=== PATIENT | male | born 1955 | race Caucasian/White ===

== ENCOUNTER 2018-10-28 14:30 | Inpatient (IN) | payer SELFPAY ==
--- NOTE | 2018-10-28 15:02 | Emergency Department Report ---
ED Neuro Deficit HPI - General Chief Complaint: Neuro Symptoms/Deficit Stated Complaint: HIGH BP/NUMB Time Seen by Provider: 10/28/18 14:54 Source: patient Mode of arrival: Ambulatory Limitations: Language Barrier - History of Present Illness Initial Comments: Patient is 63 years old male, , translation through family member. Patient brought to the emergency room accompanied by his friends. They stated that patient is having difficulty talking and he has right facial droop since approximately 3 days ago. Patient when asked about his medical history patient denied hypertension and diabetes and stroke. However patient blood pres sure in the emergency room was 208/28 and his blood sugar is more than 200. Patient denied any headache, chest pain or shortness of breath. -: days(s) Location: speech, right face, dysarthria Presenting Symptoms: Present: Facial Droop/Numbness, Unable to Speak Clearly History of same: No Place: home Severity: moderate Improves With: none Worsens With: none Context: sudden onset Associated Symptoms: denies other symptoms - Related Data Allergies/Adverse Reactions: Allergies Allergy/AdvReac Type Severity Reaction Status Date / Time No Known Allergies Allergy Unverified 10/28/18 14:44 ED Review of Systems ROS: Stated complaint: HIGH BP/NUMB Other details as noted in HPI Comment: All other systems reviewed and negative Constitutional: denies: chills, fever Respiratory: denies: cough, orthopnea, shortness of breath, SOB with exertion, SOB at rest, wheezing Cardiovascular: denies: chest pain, palpitations, dyspnea on exertion Gastrointestinal: denies: abdominal pain, nausea, vomiting, diarrhea, constipation, hematemesis, melena, hematochezia Musculoskeletal: denies: back pain Neurological: numbness. denies: headache, weakness, paresthesias, confusion, abnormal gait ED Past Medical Hx - Past Medical History Previous Medical History?: No - Surgical History Past Surgical History?: No - Social History Smoking Status: Never Smoker Substance Use Type: None ED Neuro Physical Exam - General Limitations: Language Barrier General appearance: alert, in no apparent distress Suspected Stroke: Yes - Head Head exam: Present: atraumatic, normocephalic, normal inspection - Eye Eye exam: Present: normal appearance, PERRL - ENT ENT exam: Present: normal exam, normal orophraynx, mucous membranes moist - Neck Neck exam: Present: normal inspection, full ROM. Absent: tenderness, meningismus, lymphadenopathy, thyromegaly - Respiratory Respiratory exam: Present: normal lung sounds bilaterally. Absent: respiratory distress, wheezes, rales, rhonchi, stridor, chest wall tenderness, accessory muscle use, decreased breath sounds, prolonged expiratory - Cardiovascular Cardiovascular Exam: Present: regular rate, normal rhythm, normal heart sounds - GI/Abdominal GI/Abdominal exam: Present: soft, normal bowel sounds. Absent: distended, tenderness, guarding, rebound, rigid, organomegaly, mass, bruit, pulsatile mass, hernia - Extremities Exam Extremities exam: Present: normal inspection, full ROM, normal capillary refill. Absent: tenderness, pedal edema, calf tenderness - Back Exam Back exam: Present: normal inspection, full ROM. Absent: tenderness, CVA tenderness (R), CVA tenderness (L), muscle spasm - Neurological Exam Neurological exam: Present: alert, oriented X3 - NIHSS Assessment Interval: 24 hours post onset of symptoms +-20 minutes 1a. Level of Consciousness: alert/keenly responsive 1b. LOC Questions: answers both correctly 1c. LOC Commands: performs tasks correctly 2. Best Gaze: normal 3. Visual: no visual loss 4. Facial Palsy: partial paralysis 5b. Motor Arm Right: no drift 5a. Motor Arm Left: no drift 6a. Motor Leg Left: no drift 6b. Motor Leg Right: no drift 7. Limb Ataxia: absent 8. Sensory: mild/moderate sensory loss 9. Best Language: mild/moderate aphasia 10. Dysarthria: mild/moderate dysarthria 11. Extinction/Inattention: no abnormality Total Score: 5 Stroke Severity: Moderate Stroke - Psychiatric Psychiatric exam: Present: normal affect, normal mood - Skin Skin exam: Present: warm, intact, normal color ED Course Vital Signs 10/28/18 10/28/18 10/28/18 14:41 14:55 15:00 Temperature 98.6 F Pulse Rate 85 80 84 Respiratory 18 18 17 Rate Blood Pressure 208/128 229/109 Blood Pressure [Left] O2 Sat by Pulse 100 96 Oximetry 10/28/18 10/28/18 10/28/18 15:15 15:16 15:30 Temperature Pulse Rate 83 75 Respiratory 20 15 20 Rate Blood Pressure 229/109 229/109 Blood Pressure [Left] O2 Sat by Pulse 96 Oximetry 10/28/18 10/28/18 10/28/18 15:46 16:00 16:16 Temperature Pulse Rate 78 78 73 Respiratory 22 14 14 Rate Blood Pressure 229/109 207/103 207/103 Blood Pressure [Left] O2 Sat by Pulse 96 95 98 Oximetry 10/28/18 10/28/18 10/28/18 16:30 16:46 17:00 Temperature Pulse Rate 77 77 74 Respiratory 19 13 13 Rate Blood Pressure 198/93 198/93 196/95 Blood Pressure [Left] O2 Sat by Pulse 93 98 94 Oximetry 10/28/18 10/28/18 10/28/18 17:16 17:30 17:46 Temperature Pulse Rate 73 70 70 Respiratory 11 L 14 19 Rate Blood Pressure 196/95 196/95 196/95 Blood Pressure [Left] O2 Sat by Pulse 99 97 95 Oximetry 10/28/18 10/28/18 18:19 19:22 Temperature 98.2 F Pulse Rate 68 74 Respiratory 14 Rate Blood Pressure 196/106 Blood Pressure 178/88 [Left] O2 Sat by Pulse 98 Oximetry - Lab Data Result diagrams: 10/28/18 14:52 10/28/18 14:58 Lab Results 10/28/18 10/28/18 10/28/18 Range/Units 14:36 14:52 14:52 WBC 10.0 (4.5-11.0) K/mm3 RBC 5.27 H (3.65-5.03) M/mm3 Hgb 15.7 H (11.8-15.2) gm/dl Hct 44.9 (35.5-45.6) % MCV 85 (84-94) fl MCH 30 (28-32) pg MCHC 35 H (32-34) % RDW 13.3 (13.2-15.2) % Plt Count 140 (140-440) K/mm3 Lymph % (Auto) 12.4 L (13.4-35.0) % Grayson % (Auto) 5.1 (0.0-7.3) % Eos % (Auto) 0.3 (0.0-4.3) % Baso % (Auto) 0.3 (0.0-1.8) % Lymph # 1.2 (1.2-5.4) K/mm3 Grayson # 0.5 (0.0-0.8) K/mm3 Eos # 0.0 (0.0-0.4) K/mm3 Baso # 0.0 (0.0-0.1) K/mm3 Seg Neutrophils % 81.9 H (40.0-70.0) % Seg Neutrophils # 8.2 H (1.8-7.7) K/mm3 PT 13.2 (12.2-14.9) Sec. INR 0.96 (0.87-1.13) APTT 23.5 L (24.2-36.6) Sec. Thrombin Time (15.1-19.6) Sec. Sodium (137-145) mmol/L Potassium (3.6-5.0) mmol/L Chloride (98-107) mmol/L Carbon Dioxide (22-30) mmol/L Anion Gap mmol/L BUN (9-20) mg/dL Creatinine (0.8-1.5) mg/dL Estimated GFR ml/min BUN/Creatinine Ratio % Glucose (75-100) mg/dL POC Glucose 232 H (70-105) Calcium (8.4-10.2) mg/dL Total Bilirubin (0.1-1.2) mg/dL Direct Bilirubin (0-0.2) mg/dL AST (5-40) units/L ALT (7-56) units/L Alkaline Phosphatase (35-129) units/L Troponin T (0.00-0.029) ng/mL Total Protein (6.3-8.2) g/dL Albumin (3.9-5) g/dL Albumin/Globulin Ratio % 10/28/18 10/28/18 10/28/18 Range/Units 14:58 14:58 14:59 WBC (4.5-11.0) K/mm3 RBC (3.65-5.03) M/mm3 Hgb (11.8-15.2) gm/dl Hct (35.5-45.6) % MCV (84-94) fl MCH (28-32) pg MCHC (32-34) % RDW (13.2-15.2) % Plt Count (140-440) K/mm3 Lymph % (Auto) (13.4-35.0) % Grayson % (Auto) (0.0-7.3) % Eos % (Auto) (0.0-4.3) % Baso % (Auto) (0.0-1.8) % Lymph # (1.2-5.4) K/mm3 Grayson # (0.0-0.8) K/mm3 Eos # (0.0-0.4) K/mm3 Baso # (0.0-0.1) K/mm3 Seg Neutrophils % (40.0-70.0) % Seg Neutrophils # (1.8-7.7) K/mm3 PT (12.2-14.9) Sec. INR (0.87-1.13) APTT (24.2-36.6) Sec. Thrombin Time 16.1 (15.1-19.6) Sec. Sodium 137 (137-145) mmol/L Potassium 3.9 (3.6-5.0) mmol/L Chloride 102.6 (98-107) mmol/L Carbon Dioxide 21 L (22-30) mmol/L Anion Gap 17 mmol/L BUN 15 (9-20) mg/dL Creatinine 0.8 (0.8-1.5) mg/dL Estimated GFR > 60 ml/min BUN/Creatinine Ratio 19 % Glucose 242 H (75-100) mg/dL POC Glucose (70-105) Calcium 9.1 (8.4-10.2) mg/dL Total Bilirubin 0.40 (0.1-1.2) mg/dL Direct Bilirubin < 0.2 (0-0.2) mg/dL AST 20 (5-40) units/L ALT 21 (7-56) units/L Alkaline Phosphatase 87 (35-129) units/L Troponin T < 0.010 (0.00-0.029) ng/mL Total Protein 8.2 (6.3-8.2) g/dL Albumin 4.8 (3.9-5) g/dL Albumin/Globulin Ratio 1.4 % - EKG Data -: EKG Interpreted by Sd EKG shows normal: sinus rhythm Rate: normal Interpretation: no acute changes - Radiology Data Radiology results: report reviewed CT brain is unremarkable. - Medical Decision Making Patient is 63 years old male, , translation through family member. Patient brought to the emergency room accompanied by his friends. They stated that patient is having difficulty talking and he has right facial droop since approximately 3 days ago. Patient when asked about his medical history patient denied hypertension and diabetes and stroke. However patient blood pressure in the emergency room was 208/28 and his blood sugar is more than 200. Patient denied any headache, chest pain or shortness of breath. Patient's symptoms started more than 3 days ago. Patient is not a TPA candidate or thrombectomy candidate. I discussed the patient with Dr. Henry, he agreed to admit the patient to medical service. - Thrombolytic Inclusion/Exclusion Thrombolytic Exclusion Criteria: Symptom Onset > 3 Hours Critical Care Time: Yes Critical care time in (mins) excluding proc time.: 30 Critical care attestation.: If time is entered above; I have spent that time in minutes in the direct care of this critically ill patient, excluding procedure time. ED Disposition Clinical Impression: CVA (cerebral vascular accident) Qualifiers: Precerebral and cerebral artery: unspecified cerebral artery Disposition: DC-[id number] OP ADMIT IP TO THIS HOSP Is pt being admited?: Yes Condition: Stable
[2018-10-28 15:13] LABS: Basophils % (Auto) 0.3 % (0.0-1.8); Eosinophils % (Auto) 0.3 % (0.0-4.3); Hematocrit 44.9 % (35.5-45.6); Hemoglobin 15.7 gm/dl (11.8-15.2); Lymphocytes # (Auto) 1.2 K/mm3 (1.2-5.4); Lymphocytes % (Auto) 12.4 % (13.4-35.0); Mean Corpuscular HGB Conc 35 % (32-34); Mean Corpuscular Volume 85 fl (84-94); Monocytes # (Auto) 0.5 K/mm3 (0.0-0.8); Monocytes % (Auto) 5.1 % (0.0-7.3); Red Blood Count 5.27 M/mm3 (3.65-5.03); Red Cell Distribution Width 13.3 % (13.2-15.2)
[2018-10-28 15:17] LABS: Platelet Count 140 K/mm3 (140-440)
[2018-10-28 15:22] LABS: INR 0.96 (0.87-1.13); Partial Thromboplastin Time 23.5 Sec. (24.2-36.6)
[2018-10-28 15:31] LABS: BUN/Creatinine Ratio 19; Blood Urea Nitrogen 15 mg/dL (9-20); Calcium 9.1 mg/dL (8.4-10.2); Hemolysis Index 9
--- NOTE | 2018-10-28 15:32 | Cat Scan Report ---
FINAL REPORT EXAM: CT HEAD/BRAIN WO CON HISTORY: neuro deficits <6hrs or sx present upon awakening TECHNIQUE: CT of the Head without IV contrast. PRIORS: None currently available. FINDINGS: There is no evidence for acute ischemia. There is no hemorrhage. There is no midline shift. There is no hydrocephalus. There is no mass. Age appropriate hatfield-white matter attenuation is noted. There is no calvarial fracture. The temporal bones demonstrate aerated mastoid air cells. The middle ears appear unremarkable. Paranasal sinuses are unremarkable. Globes are intact. IMPRESSION: No acute intracranial findings.
[2018-10-28 15:33] LABS: Alanine Aminotransferase 21 units/L (7-56); Albumin 4.8 g/dL (3.9-5)
[2018-10-28 15:41] LABS: Bilirubin,Direct < 0.2 mg/dL (0-0.2)
[2018-10-28] MEDS ORDERED: DULCOLAX PR PRN (16:43)
[2018-10-28] MEDS ORDERED: PROVENTIL IH PRN (16:43)
[2018-10-28] MEDS ORDERED: PHENERGAN PR PRN (16:43)
[2018-10-28] MEDS ORDERED: REGLAN PO PRN (16:43)
[2018-10-28] MEDS ORDERED: ZOFRAN IV PRN (16:43)
[2018-10-28] MEDS ORDERED: MILK OF MAGNESIA PO PRN (16:43)
--- NOTE | 2018-10-28 16:43 | History and Physical Report ---
History of Present Illness Chief complaint: He cant talk right History of present illness: 63 YO Male with NO PMH presents to ED for evaluation. Pt is unable to speak Polish, and had difficulty speaking. Pt family who is at bedside during exam and interview serves as vehicle service agent. As per family, the patient was in his usual state of health 3 days ago. Pt experienced sudden onset of right sided facial drooping, difficulty speaking 3 days ago with persistent symptoms over the same time frame. Pt family transported patient to [facility] for further care and evaluation. Pt seen and evaluated in ED and found to have CVA with Dysarthria. Pt outside therapeutic window for TPA. Pt admitted to telemetry and initiated on CVA protocol. NO reports of fever, chills, CP, Palpitations, Trauma, Falls, productive cough, seizure, vertigo, skin rash, or recent ill contacts. Past History Past Medical History: No medical history, other (reviewed) Past Surgical History: No surgical history, Other (reviewed) Social history: single. denies: smoking, alcohol abuse, prescription drug abuse Family history: no significant family history (reviewed) Medications and Allergies Allergies Allergy/AdvReac Type Severity Reaction Status Date / Time No Known Allergies Allergy Unverified 10/28/18 14:44 Review of Systems ROS unobtainable: due to mental status Exam - Constitutional Vitals: Temp Pulse Resp BP Pulse Ox 98.6 F 78 14 207/103 95 10/28/18 14:41 10/28/18 16:00 10/28/18 16:00 10/28/18 16:00 10/28/18 16:00 General appearance: Present: mild distress - EENT Eyes: Present: PERRL ENT: hearing intact, clear oral mucosa - Neck Neck: Present: supple, normal ROM - Respiratory Respiratory effort: normal Respiratory: bilateral: CTA - Cardiovascular Heart Sounds: Present: S1 & S2. Absent: rub, click - Extremities Extremities: pulses symmetrical, No edema Peripheral Pulses: within normal limits - Abdominal General gastrointestinal: Present: soft, non-tender, non-distended, normal bowel sounds Male genitourinary: Present: normal - Integumentary Integumentary: Present: clear, warm, dry - Musculoskeletal Musculoskeletal: generalized weakness - Psychiatric Psychiatric: appropriate mood/affect, no intact judgment & insight, no memory intact - Neurologic Neurologic: no CNII-XII intact, focal deficits, moves all extremities, no gait normal Results - Labs CBC & Chem 7: 10/28/18 14:52 10/28/18 14:58 Labs: Abnormal lab results 10/28/18 10/28/18 10/28/18 Range/Units 14:36 14:52 14:52 RBC 5.27 H (3.65-5.03) M/mm3 Hgb 15.7 H (11.8-15.2) gm/dl MCHC 35 H (32-34) % Lymph % (Auto) 12.4 L (13.4-35.0) % Seg Neutrophils % 81.9 H (40.0-70.0) % Seg Neutrophils # 8.2 H (1.8-7.7) K/mm3 APTT 23.5 L (24.2-36.6) Sec. Carbon Dioxide (22-30) mmol/L Glucose (75-100) mg/dL POC Glucose 232 H (70-105) 10/28/18 Range/Units 14:58 RBC (3.65-5.03) M/mm3 Hgb (11.8-15.2) gm/dl MCHC (32-34) % Lymph % (Auto) (13.4-35.0) % Seg Neutrophils % (40.0-70.0) % Seg Neutrophils # (1.8-7.7) K/mm3 APTT (24.2-36.6) Sec. Carbon Dioxide 21 L (22-30) mmol/L Glucose 242 H (75-100) mg/dL POC Glucose (70-105) Assessment and Plan - Patient Problems (1) CVA (cerebral vascular accident) Current Visit: Yes Status: Acute Qualifiers: Precerebral and cerebral artery: unspecified cerebral artery Plan to address problem: Admit to telemetry: CVA Protocol: CT Head, MRI, MRA, Echo, Carotid doppler, Antiplatelet therapy, statin therapy, PT/OT/ Speech Therapy, Neuro checks,Neurology consulted. (2) Acidosis Current Visit: Yes Status: Acute Plan to address problem: IVF resuscitation therapy, repeat bmp (3) Malignant hypertension Current Visit: Yes Status: Acute Plan to address problem: monitor bp q shift, IV hydralazine prn. (4) DVT prophylaxis Current Visit: Yes Status: Acute Plan to address problem: SCD to BLE while in bed.
[2018-10-28] MEDS ORDERED: APRESOLINE IV PRN (16:48)
[2018-10-28] MEDS ORDERED: APRESOLINE ONE (18:17)
[2018-10-29 15:23] LABS: Chol/HDL Ratio 3.13 %
--- NOTE | 2018-10-29 15:34 | Magnetic Resonance Report ---
MRI BRAIN WITHOUT CONTRAST INDICATION: Stroke. COMPARISON: Head CT from yesterday. FINDINGS: Noncontrast multiplanar and multisequence MRI of the brain demonstrates approximately 5 x 2.7 cm left tse radiata acute infarct with few additional small foci of restricted diffusion more inferiorly as on diffusion series 4, images 16-23 as a linear measuring 0.9 cm in the left basal ganglia as also few others possibly cortical/subcortical as on image 19. Slight adjacent effacement upon the left lateral ventricle may be present, noted slightly smaller than the right versus anatomic variation. Mild periventricular FLAIR and T2 weighted hyperintensities with few other small lacunar infarcts as 3-4 mm in the right basal ganglia, axial image 14, series 6 as also another 4 mm in the right tse radiata, axial image 17 noted. No acute hemorrhage or midline shift. No abnormal extra-axial masses or fluid collections. Grossly normal major intracranial vascular flow voids. Symmetric, normal ventricles. Normal posterior fossa with preserved basilar cisterns and symmetric seventh and eighth nerve complexes. Normal eye globes. Mild nasal septal deviation noted, axial image 6. Clear imaged paranasal sinuses and mastoid air cells. Normal midline structures without evidence of Chiari malformation. CONCLUSION: 1. Acute left cerebral hemisphere infarction involving the tse radiata/posterior frontal lobe with some ganglionic involvement as well, as described. 2. Few other findings, as above. Thank you for the opportunity to participate in this patient's care.
--- NOTE | 2018-10-29 15:40 | Magnetic Resonance Report ---
MRA HEAD WITHOUT CONTRAST INDICATION: Stroke. COMPARISON: None similar. FINDINGS: MRA of the head performed without intravenous contrast and demonstrates patent bilateral ICAs and right MCA and its branches. Left MCA appears patent centrally, though diminished in caliber along much of its remainder length up to the sylvian fissure where further caliber narrowing/irregularity/clot suspected. Asymmetrically diminished M2 and M3 branches on the left also noted. Patent bilateral ACAs, though A1 segment on the right may be hypoplastic. PCOMs not visualized. power system dispatcher appear patent. Patent vertebrobasilar tree as well with left vertebral artery noted dominant. Please note that detection of aneurysms less than 5 mm is limited on this exam. CONCLUSION: Left MCA thrombosis suspected, as described above. Thank you for the opportunity to participate in this patient's care.
--- NOTE | 2018-10-29 18:31 | Consultation ---
History of Present Illness Consult date: 10/29/18 Chief complaint: right hemiparesis and aphasia History of present illness: This is a previously healthy 63 YO M who presented to the ED with at least 3 days of trouble with speech and right sided weakness. Pt and are maltese only but family is at bedside interpreting. Pt was not taking any meds previously including aspirin. Family says he is not speaking or moving the right side. Past History Past Medical History: No medical history, other (reviewed) Past Surgical History: No surgical history, Other (reviewed) Social history: single. denies: smoking, alcohol abuse, prescription drug abuse Family history: no significant family history (reviewed) Medications and Allergies Allergies Allergy/AdvReac Type Severity Reaction Status Date / Time No Known Allergies Allergy Unverified 10/28/18 14:44 Home Medications Medication Instructions Recorded Confirmed Last Taken Type No Known Home Medications [No 10/28/18 10/28/18 Unknown History Reported Home Medications] Active Meds: Active Medications Acetaminophen (Tylenol) 650 mg PO Q4H PRN PRN Reason: Pain, Mild (1-3) Albuterol (Proventil) 2.5 mg IH Q3HRT PRN PRN Reason: Shortness Of Breath Atorvastatin Calcium (Lipitor) 40 mg PO QHS AMY Last Admin: 10/28/18 21:20 Dose: 40 mg Documented by: Bisacodyl (Dulcolax) 10 mg [place] QDAY PRN PRN Reason: Constipation Hydralazine HCl (Apresoline) 10 mg IV Q4HR PRN PRN Reason: Hypertension Last Admin: 10/28/18 18:19 Dose: 10 mg Documented by: Magnesium Hydroxide (Milk Of Magnesia) 30 ml PO Q4H PRN PRN Reason: Constipation Metoclopramide HCl (Reglan) 10 mg PO Q6H PRN PRN Reason: Nausea And Vomiting Ondansetron HCl (Zofran) 4 mg IV Q8H PRN PRN Reason: Nausea And Vomiting Promethazine HCl (Phenergan) 25 mg [place] Q6H PRN PRN Reason: Nausea And Vomiting Sodium Chloride (Sodium Chloride Flush Syringe 10 Ml) 10 ml IV PRN PRN PRN Reason: LINE FLUSH Review of Systems ROS unobtainable: due to mental status (aphasic) Physical Examination - Vital Signs Vital Signs: Vital Signs Temp Pulse Resp BP Pulse Ox 98.6 F 85 18 208/128 100 10/28/18 14:41 10/28/18 14:41 10/28/18 14:41 10/28/18 14:41 10/28/18 14:41 - EENT EENT: Present: PERRL, mucous membranes moist - Respiratory Respiratory: Present: lungs clear, no respiratory distress - Cardiovascular Cardiovascular: Present: normal S1 - Gastrointestinal Gastrointestinal: Present: normoactive bowel sounds - Neurologic Cranial nerve examination: PERRL, EOMI, tongue midline, facial droop Motor examination - right side: 1/5: biceps, triceps, wrist flexion, wrist extension, blueprint trimmer, hip flexors, knee extensors, dorsiflexion, toe extension (EHL), plantarflexion Motor examination - left side: 5/5: biceps, triceps, wrist flexion, wrist extension, blueprint trimmer, hip flexors, knee extensors, dorsiflexion, toe extension (EHL), plantarflexion Detailed sensory examination: light touch Reflex and gait examination: Babinski's sign Reflexes: 1+: ankle, bicep, knee, tricep - Assessment Assessment Interval: 24 hours post onset of symptoms +-20 minutes - Level of Consciousness 1a. Level of Consciousness: alert/keenly responsive - LOC Questions 1b. LOC Questions: answers no questions correctly - LOC Command 1c. LOC Commands: performs no tasks correctly - Best Gaze 2. Best Gaze: normal - Visual 3. Visual: no visual loss - Facial Palsy 4. Facial Palsy: partial paralysis - Motor Arm 5b. Motor Arm Right: no movement 5a. Motor Arm Left: no movement - Motor Leg 6b. Motor Leg Right: no drift 6a. Motor Leg Left: no drift - Limb Ataxia 7. Limb Ataxia: present 2 limbs - Sensory 8. Sensory: normal - Best Language 9. Best Language: mute/global aphasia - Dysarthria 10. Dysarthria: normal - Extinction and Inattention 11. Extinction/Inattention: no abnormality - Scoring Total Score: 19 Stroke Severity: Moderate to Severe Stroke Results - Laboratory Findings CBC and BMP: 10/28/18 14:52 10/28/18 14:58 Abnormal Lab Findings: Abnormal Labs 10/28/18 10/28/18 10/28/18 14:36 14:52 14:52 RBC 5.27 H Hgb 15.7 H MCHC 35 H Lymph % (Auto) 12.4 L Seg Neutrophils % 81.9 H Seg Neutrophils # 8.2 H APTT 23.5 L Carbon Dioxide Glucose POC Glucose 232 H 10/28/18 14:58 RBC Hgb MCHC Lymph % (Auto) Seg Neutrophils % Seg Neutrophils # APTT Carbon Dioxide 21 L Glucose 242 H POC Glucose Assessment and Plan This is a 63 YO M with LMCA stroke and LMCA thrombus. PT presented out of the window for Alteplase or thrombectomy. REcommend: Rectal aspirin and statin when pt can take PO MRI Brain, MRA, echo all reviewed. PT/OT/ST/Rehab VTE prophylaxis BP management as per protocol COntinue care for all medical issues as you are doing. Pt's family member is asking for a work excuse, will need to be addressed by the primary team. All pt family questions answered Call with questions.
[2018-10-29] MEDS: ASPIRIN PR SCH (18:54)
--- NOTE | 2018-10-29 20:11 | Progress Note ---
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 and dysarthria; --Acute left MCA CVA; not a candidate for TPA or thrombectomy Aspirin and statin, physical therapy occupational therapy and speech therapy Rehabilitation, Neurology following --Malignant hypertension; present on admission Continue current antihypertensives and when necessary medications --Dyslipidemia; continue statin --Dysarthria; speech therapy and supportive care --DVT prophylaxis; Lovenox Physical therapy, occupational therapy, speech therapy -- DC planning.per Case management; possible acute rehabilitation versus SNF placement When medically stable Plan of care discussed with the patient's family through a bilingual family member Answered all their questions Disposition; possible acute rehabilitation/SNF when medically stable History Interval history: Patient seen and medical records reviewed Multiple family members at the bedside Patient is aphasic, right-sided weakness In mild distress Vital signs reviewed Hospitalist Physical - Constitutional Vitals: Temp Pulse Resp BP Pulse Ox 99.6 F 78 14 171/94 96 10/29/18 17:29 10/29/18 17:29 10/29/18 17:29 10/29/18 17:29 10/29/18 19:42 General appearance: Present: mild distress, well-nourished - EENT Eyes: Present: PERRL, EOM intact - Neck Neck: Present: supple, normal ROM - Respiratory Respiratory effort: normal Respiratory: bilateral: diminished, rhonchi, negative: rales, wheezing - Cardiovascular Rhythm: regular Heart Sounds: Present: S1 & S2 - Extremities Extremities: no ischemia, No edema - Abdominal General gastrointestinal: soft, non-tender, non-distended, normal bowel sounds - Integumentary Integumentary: Present: clear, warm - Psychiatric Psychiatric: other (noncommunicative) - Neurologic Neurologic: other (dysarthria/right-sided weakness/facial droop) Results - Labs CBC & Chem 7: 10/28/18 14:52 10/28/18 14:58 Labs: Laboratory Last Values WBC 10.0 K/mm3 (4.5-11.0) 10/28/18 14:52 RBC 5.27 M/mm3 (3.65-5.03) H 10/28/18 14:52 Hgb 15.7 gm/dl (11.8-15.2) H 10/28/18 14:52 Hct 44.9 % (35.5-45.6) 10/28/18 14:52 MCV 85 fl (84-94) 10/28/18 14:52 MCH 30 pg (28-32) 10/28/18 14:52 MCHC 35 % (32-34) H 10/28/18 14:52 RDW 13.3 % (13.2-15.2) 10/28/18 14:52 Plt Count 140 K/mm3 (140-440) 10/28/18 14:52 Lymph % (Auto) 12.4 % (13.4-35.0) L 10/28/18 14:52 [place] % (Auto) 5.1 % (0.0-7.3) 10/28/18 14:52 Eos % (Auto) 0.3 % (0.0-4.3) 10/28/18 14:52 Baso % (Auto) 0.3 % (0.0-1.8) 10/28/18 14:52 Lymph # 1.2 K/mm3 (1.2-5.4) 10/28/18 14:52 [place] # 0.5 K/mm3 (0.0-0.8) 10/28/18 14:52 Eos # 0.0 K/mm3 (0.0-0.4) 10/28/18 14:52 Baso # 0.0 K/mm3 (0.0-0.1) 10/28/18 14:52 Seg Neutrophils % 81.9 % (40.0-70.0) H 10/28/18 14:52 Seg Neutrophils # 8.2 K/mm3 (1.8-7.7) H 10/28/18 14:52 PT 13.2 Sec. (12.2-14.9) 10/28/18 14:52 INR 0.96 (0.87-1.13) 10/28/18 14:52 APTT 23.5 Sec. (24.2-36.6) L 10/28/18 14:52 Thrombin Time 16.1 Sec. (15.1-19.6) 10/28/18 14:58 Sodium 137 mmol/L (137-145) 10/28/18 14:58 Potassium 3.9 mmol/L (3.6-5.0) 10/28/18 14:58 Chloride 102.6 mmol/L (98-107) 10/28/18 14:58 Carbon Dioxide 21 mmol/L (22-30) L 10/28/18 14:58 Anion Gap 17 mmol/L 10/28/18 14:58 BUN 15 mg/dL (9-20) 10/28/18 14:58 Creatinine 0.8 mg/dL (0.8-1.5) 10/28/18 14:58 Estimated GFR > 60 ml/min 10/28/18 14:58 BUN/Creatinine Ratio 19 % 10/28/18 14:58 Glucose 242 mg/dL (75-100) H 10/28/18 14:58 POC Glucose 189 (70-105) H 10/29/18 18:45 Calcium 9.1 mg/dL (8.4-10.2) 10/28/18 14:58 Total Bilirubin 0.40 mg/dL (0.1-1.2) 10/28/18 14:59 Direct Bilirubin < 0.2 mg/dL (0-0.2) 10/28/18 14:59 AST 20 units/L (5-40) 10/28/18 14:59 ALT 21 units/L (7-56) 10/28/18 14:59 Alkaline Phosphatase 87 units/L (35-129) 10/28/18 14:59 Troponin T < 0.010 ng/mL (0.00-0.029) 10/28/18 14:58 Total Protein 8.2 g/dL (6.3-8.2) 10/28/18 14:59 Albumin 4.8 g/dL (3.9-5) 10/28/18 14:59 Albumin/Globulin Ratio 1.4 % 10/28/18 14:59 Triglycerides 111 mg/dL (2-149) 10/29/18 13:25 Cholesterol 160 mg/dL (50-199) 10/29/18 13:25 LDL Cholesterol Direct 106 mg/dL (50-130) 10/29/18 13:25 HDL Cholesterol 51 mg/dL (40-59) 10/29/18 13:25 Cholesterol/HDL Ratio 3.13 % 10/29/18 13:25
[2018-10-29] MEDS: LOVENOX SUB-Q SCH (21:38)
[2018-10-29] MEDS: SODIUM CHLORIDE FLUSH SYRINGE 10 ML IV PRN (21:38)
[2018-10-30] MEDS: HumaLOG SUB-Q SCH ×4 (06:00→17:16)
[2018-10-30 07:08] LABS: Basophils % (Auto) 0.3 % (0.0-1.8); Eosinophils # (Auto) 0.1 K/mm3 (0.0-0.4); Eosinophils % (Auto) 0.6 % (0.0-4.3); Hematocrit 45.1 % (35.5-45.6); Hemoglobin 15.3 gm/dl (11.8-15.2); Lymphocytes # (Auto) 2.3 K/mm3 (1.2-5.4); Lymphocytes % (Auto) 21.5 % (13.4-35.0); Mean Corpuscular HGB Conc 34 % (32-34); Mean Corpuscular Volume 87 fl (84-94); Monocytes # (Auto) 0.7 K/mm3 (0.0-0.8); Monocytes % (Auto) 6.6 % (0.0-7.3); Red Blood Count 5.17 M/mm3 (3.65-5.03); Red Cell Distribution Width 13.2 % (13.2-15.2)
--- NOTE | 2018-10-30 07:10 | Vascular Lab Report ---
FINAL REPORT EXAM: VL CAROTID DUPLEX BILAT HISTORY: stroke TECHNIQUE: Routine duplex imaging was obtained of the arteries in the neck. Color Doppler images wav eforms velocities recorded. FINDINGS: There is interval thickening and mild plaque formation in both proximal internal carotid arteries. Th e waveforms losses are normal in both common and both internal carotid arteries. There is normal ante grade flow and waveforms in both vertebral arteries and external carotid arteries. The ICA/CCA ratios are unremarkable bilaterally. IMPRESSION: Intimal thickening and mild plaque formation in both proximal ICAs. No evidence of any hemodynamicall y significant stenosis bilaterally. Normal antegrade flow in both vertebral arteries.
[2018-10-30 07:20] LABS: Platelet Count 130 K/mm3 (140-440)
[2018-10-30] MEDS: ASPIRIN PR SCH ×2 (10:22→10:27)
--- NOTE | 2018-10-30 16:36 | Progress Note ---
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 and dysarthria; --Acute left MCA CVA; not a candidate for TPA or thrombectomy Aspirin and statin, physical therapy occupational therapy and speech therapy Rehabilitation, Neurology following --Malignant hypertension; present on admission Continue current antihypertensives and when necessary medications --Dyslipidemia; continue statin --Dysarthria; speech therapy and supportive care --DVT prophylaxis; Lovenox Physical therapy, occupational therapy, speech therapy -- DC planning.per Case management; possible acute rehabilitation versus SNF placement When medically stable Plan of care discussed with the patient's family through a bilingual family member Answered all their questions Disposition; possible acute rehabilitation/SNF when medically stable==>unfunded, d/w case management, awaiting safe discharge History Interval history: Patient was seen and examined. Follow-up on current diagnosis of CVA. Overnight uneventful. Patient aphasic but nods head. Imaging, nursing note, chart, labs and old chart reviewed. Discussed with patient and nephrew Maninder at bedside Hospitalist Physical - Physical exam Narrative exam: Gen: WDWN, NAD, Awake, nonverbal HEENT: NCAT, EOMI, PERRL, OP Clear Neck: supple, no adenopathy, no thyromegaly, no JVD CVS/Heart: RRR, normal S1S2, pulses present bilaterally Chest/Lungs: CTA B, Symmetrical chest expansion, good air entry bilaterally GI/Abdomen: soft, NTND, good bowel sounds, no guarding or rebound /Bladder: no suprapubic tenderness, no CVA or paraspinal tenderness Extermity/Skin: no c/c/e, no obvious rash MSK: FROM x3, right side is flaccid Neuro: CN 2-12 grossly intact except expressive aphasia, right hemiparesis Psych: calm - Constitutional Vitals: Temp Pulse Resp BP Pulse Ox 99.1 F 80 18 130/86 94 10/30/18 11:33 10/30/18 11:33 10/30/18 11:33 10/30/18 11:33 10/30/18 11:33 General appearance: Present: mild distress, well-nourished Results - Labs CBC & Chem 7: 10/30/18 05:49 10/28/18 14:58 Labs: Laboratory Last Values WBC 10.6 K/mm3 (4.5-11.0) 10/30/18 05:49 RBC 5.17 M/mm3 (3.65-5.03) H 10/30/18 05:49 Hgb 15.3 gm/dl (11.8-15.2) H 10/30/18 05:49 Hct 45.1 % (35.5-45.6) 10/30/18 05:49 MCV 87 fl (84-94) 10/30/18 05:49 MCH 30 pg (28-32) 10/30/18 05:49 MCHC 34 % (32-34) 10/30/18 05:49 RDW 13.2 % (13.2-15.2) 10/30/18 05:49 Plt Count 130 K/mm3 (140-440) L 10/30/18 05:49 Lymph % (Auto) 21.5 % (13.4-35.0) 10/30/18 05:49 [place] % (Auto) 6.6 % (0.0-7.3) 10/30/18 05:49 Eos % (Auto) 0.6 % (0.0-4.3) 10/30/18 05:49 Baso % (Auto) 0.3 % (0.0-1.8) 10/30/18 05:49 Lymph # 2.3 K/mm3 (1.2-5.4) 10/30/18 05:49 [place] # 0.7 K/mm3 (0.0-0.8) 10/30/18 05:49 Eos # 0.1 K/mm3 (0.0-0.4) 10/30/18 05:49 Baso # 0.0 K/mm3 (0.0-0.1) 10/30/18 05:49 Seg Neutrophils % 71.0 % (40.0-70.0) H 10/30/18 05:49 Seg Neutrophils # 7.5 K/mm3 (1.8-7.7) 10/30/18 05:49 PT 13.2 Sec. (12.2-14.9) 10/28/18 14:52 INR 0.96 (0.87-1.13) 10/28/18 14:52 APTT 23.5 Sec. (24.2-36.6) L 10/28/18 14:52 Thrombin Time 16.1 Sec. (15.1-19.6) 10/28/18 14:58 Sodium 137 mmol/L (137-145) 10/28/18 14:58 Potassium 3.9 mmol/L (3.6-5.0) 10/28/18 14:58 Chloride 102.6 mmol/L (98-107) 10/28/18 14:58 Carbon Dioxide 21 mmol/L (22-30) L 10/28/18 14:58 Anion Gap 17 mmol/L 10/28/18 14:58 BUN 15 mg/dL (9-20) 10/28/18 14:58 Creatinine 0.8 mg/dL (0.8-1.5) 10/28/18 14:58 Estimated GFR > 60 ml/min 10/28/18 14:58 BUN/Creatinine Ratio 19 % 10/28/18 14:58 Glucose 242 mg/dL (75-100) H 10/28/18 14:58 POC Glucose 147 (70-105) H 10/30/18 11:39 Hemoglobin A1c 9.3 % (4-6) H 10/30/18 05:49 Calcium 9.1 mg/dL (8.4-10.2) 10/28/18 14:58 Phosphorus 4.70 mg/dL (2.5-4.5) H 10/30/18 05:49 Magnesium 2.30 mg/dL (1.7-2.3) 10/30/18 05:49 Total Bilirubin 0.40 mg/dL (0.1-1.2) 10/28/18 14:59 Direct Bilirubin < 0.2 mg/dL (0-0.2) 10/28/18 14:59 AST 20 units/L (5-40) 10/28/18 14:59 ALT 21 units/L (7-56) 10/28/18 14:59 Alkaline Phosphatase 87 units/L (35-129) 10/28/18 14:59 Troponin T < 0.010 ng/mL (0.00-0.029) 10/28/18 14:58 Total Protein 8.2 g/dL (6.3-8.2) 10/28/18 14:59 Albumin 4.8 g/dL (3.9-5) 10/28/18 14:59 Albumin/Globulin Ratio 1.4 % 10/28/18 14:59 Triglycerides 111 mg/dL (2-149) 10/29/18 13:25 Cholesterol 160 mg/dL (50-199) 10/29/18 13:25 LDL Cholesterol Direct 106 mg/dL (50-130) 10/29/18 13:25 HDL Cholesterol 51 mg/dL (40-59) 10/29/18 13:25 Cholesterol/HDL Ratio 3.13 % 10/29/18 13:25
[2018-10-30] MEDS: LOVENOX SUB-Q SCH (22:51)
[2018-10-30] MEDS: SODIUM CHLORIDE FLUSH SYRINGE 10 ML IV PRN (22:51)
[2018-10-31] MEDS: HumaLOG SUB-Q SCH (07:49)
[2018-10-31] MEDS: ASPIRIN PR SCH (10:51)
--- NOTE | 2018-10-31 11:34 | Consultation ---
History of Present Illness Consult date: 10/31/18 Requesting physician: KUNAL CM Consult reason: arrhythmia History of present illness: The patient is aphasic. According to family members, he developed sudden onset of aphasia and right-sided weakness which prompted presentation to the emergency department. Brain MRI/MRA revealed acute left MCA stroke with suspicion of left MCA thrombosis. This morning, the patient was noted to have a 5 beat run of nonsustained VT on the monitor. Past History Past Medical History: other (Gastritis) Past Surgical History: No surgical history Social history: denies: smoking, alcohol abuse Family history: no significant family history Medications and Allergies Allergies Allergy/AdvReac Type Severity Reaction Status Date / Time No Known Allergies Allergy Unverified 10/28/18 14:44 Home Medications Medication Instructions Recorded Confirmed Last Taken Type No Known Home Medications [No 10/28/18 10/28/18 Unknown History Reported Home Medications] Active Meds: Active Medications Acetaminophen (Tylenol) 650 mg PO Q4H PRN PRN Reason: Pain, Mild (1-3) Albuterol (Proventil) 2.5 mg IH Q3HRT PRN PRN Reason: Shortness Of Breath Aspirin (Aspirin) 300 mg [place] QDAY [facility] Last Admin: 10/31/18 10:51 Dose: Not Given Documented by: Atorvastatin Calcium (Lipitor) 40 mg PO QHS [facility] Last Admin: 10/30/18 22:51 Dose: 40 mg Documented by: Bisacodyl (Dulcolax) 10 mg WA QDAY PRN PRN Reason: Constipation Enoxaparin Sodium (Lovenox) 40 mg SUB-Q QDAY@2200 [facility] Last Admin: 10/30/18 22:51 Dose: 40 mg Documented by: Hydralazine HCl (Apresoline) 10 mg IV Q4HR PRN PRN Reason: Hypertension Last Admin: 10/28/18 18:19 Dose: 10 mg Documented by: Insulin Human Lispro (Humalog) 0 unit SUB-Q Q6HR [facility]; Protocol Last Admin: 10/31/18 07:49 Dose: Not Given Documented by: Magnesium Hydroxide (Milk Of Magnesia) 30 ml PO Q4H PRN PRN Reason: Constipation Metoclopramide HCl (Reglan) 10 mg PO Q6H PRN PRN Reason: Nausea And Vomiting Ondansetron HCl (Zofran) 4 mg IV Q8H PRN PRN Reason: Nausea And Vomiting Promethazine HCl (Phenergan) 25 mg WA Q6H PRN PRN Reason: Nausea And Vomiting Sodium Chloride (Sodium Chloride Flush Syringe 10 Ml) 10 ml IV PRN PRN PRN Reason: LINE FLUSH Last Admin: 10/30/18 22:51 Dose: 10 ml Documented by: Review of Systems ROS unobtainable: due to mental status Physical Examination Vital Signs Last Vital Signs Temp 98.1 F 10/31/18 08:30 Pulse 78 10/31/18 08:30 Resp 16 10/31/18 08:30 BP 138/83 10/31/18 08:30 Pulse Ox 92 10/31/18 08:30 General appearance: no acute distress HEENT: Positive: Normocephaly, Mucus Membranes Moist Neck: Positive: neck supple, trachea midline Cardiac: Positive: Reg Rate and Rhythm Lungs: Positive: clear to auscultation Neuro: Positive: Other (Aphasia with R hemiparesis) Abdomen: Positive: Soft, Active Bowel Sounds. Negative: Tender Skin: Positive: Clear. Negative: Rash Musculoskeletal: Normal Range of Motion Extremities: Present: normal. Absent: edema Results 10/30/18 05:49 10/28/18 14:58 - Imaging and Cardiology EKG: image reviewed EKG interpretations - Telemetry EKG Rhythm: Sinus Rhythm - EKG Sinus rhythms and dysrhythmias: sinus rhythm Assessment and Plan LV systolic function was noted to be normal on echocardiogram. Obtain e lectrolytes and correct any abnormalities. Initiate beta gurwinder therapy. Ultimately, he will benefit from a Lexiscan stress test with nuclear imaging. - Patient Problems (1) NSVT (nonsustained ventricular tachycardia) Current Visit: Yes Status: Acute (2) Acute cerebrovascular accident (CVA) Current Visit: Yes Status: Acute (3) Hypertension Current Visit: Yes Status: Chronic Qualifiers: Hypertension type: essential hypertension Qualified Code(s): I10 - Essential (primary) hypertension
[2018-10-31 15:44] LABS: BUN/Creatinine Ratio 29; Blood Urea Nitrogen 26 mg/dL (9-20); Calcium 8.9 mg/dL (8.4-10.2); Hemolysis Index 8
--- NOTE | 2018-10-31 18:16 | Progress Note ---
History Interval history: Patient was seen and examined. Follow-up on current diagnosis of CVA. Overnight uneventful. Patient aphasic but nods head. Imaging, nursing note, chart, labs and old chart reviewed. Discussed with patient and nephjulio Dickens at bedside. This mornig patient has 5 beat run of NSVT, I consulted Cardiology Hospitalist Physical - Constitutional Vitals: Temp Pulse Resp BP Pulse Ox 98.1 F 81 16 166/91 95 10/31/18 08:30 10/31/18 15:00 10/31/18 08:30 10/31/18 12:36 10/31/18 12:36 General appearance: Present: no acute distress Results - Labs CBC & Chem 7: 10/30/18 05:49 10/31/18 14:44 Labs: Laboratory Last Values WBC 10.6 K/mm3 (4.5-11.0) 10/30/18 05:49 RBC 5.17 M/mm3 (3.65-5.03) H 10/30/18 05:49 Hgb 15.3 gm/dl (11.8-15.2) H 10/30/18 05:49 Hct 45.1 % (35.5-45.6) 10/30/18 05:49 MCV 87 fl (84-94) 10/30/18 05:49 MCH 30 pg (28-32) 10/30/18 05:49 MCHC 34 % (32-34) 10/30/18 05:49 RDW 13.2 % (13.2-15.2) 10/30/18 05:49 Plt Count 130 K/mm3 (140-440) L 10/30/18 05:49 Lymph % (Auto) 21.5 % (13.4-35.0) 10/30/18 05:49 [place] % (Auto) 6.6 % (0.0-7.3) 10/30/18 05:49 Eos % (Auto) 0.6 % (0.0-4.3) 10/30/18 05:49 Baso % (Auto) 0.3 % (0.0-1.8) 10/30/18 05:49 Lymph # 2.3 K/mm3 (1.2-5.4) 10/30/18 05:49 [place] # 0.7 K/mm3 (0.0-0.8) 10/30/18 05:49 Eos # 0.1 K/mm3 (0.0-0.4) 10/30/18 05:49 Baso # 0.0 K/mm3 (0.0-0.1) 10/30/18 05:49 Seg Neutrophils % 71.0 % (40.0-70.0) H 10/30/18 05:49 Seg Neutrophils # 7.5 K/mm3 (1.8-7.7) 10/30/18 05:49 PT 13.2 Sec. (12.2-14.9) 10/28/18 14:52 INR 0.96 (0.87-1.13) 10/28/18 14:52 APTT 23.5 Sec. (24.2-36.6) L 10/28/18 14:52 Thrombin Time 16.1 Sec. (15.1-19.6) 10/28/18 14:58 Sodium 141 mmol/L (137-145) 10/31/18 14:44 Potassium 4.1 mmol/L (3.6-5.0) 10/31/18 14:44 Chloride 104.9 mmol/L (98-107) 10/31/18 14:44 Carbon Dioxide 22 mmol/L (22-30) 10/31/18 14:44 Anion Gap 18 mmol/L 10/31/18 14:44 BUN 26 mg/dL (9-20) H 10/31/18 14:44 Creatinine 0.9 mg/dL (0.8-1.5) 10/31/18 14:44 Estimated GFR > 60 ml/min 10/31/18 14:44 BUN/Creatinine Ratio 29 % 10/31/18 14:44 Glucose 151 mg/dL (75-100) H 10/31/18 14:44 POC Glucose 159 (70-105) H 10/31/18 12:40 Hemoglobin A1c 9.3 % (4-6) H 10/30/18 05:49 Calcium 8.9 mg/dL (8.4-10.2) 10/31/18 14:44 Phosphorus 4.70 mg/dL (2.5-4.5) H 10/30/18 05:49 Magnesium 2.30 mg/dL (1.7-2.3) 10/31/18 14:44 Total Bilirubin 0.40 mg/dL (0.1-1.2) 10/28/18 14:59 Direct Bilirubin < 0.2 mg/dL (0-0.2) 10/28/18 14:59 AST 20 units/L (5-40) 10/28/18 14:59 ALT 21 units/L (7-56) 10/28/18 14:59 Alkaline Phosphatase 87 units/L (35-129) 10/28/18 14:59 Troponin T < 0.010 ng/mL (0.00-0.029) 10/28/18 14:58 Total Protein 8.2 g/dL (6.3-8.2) 10/28/18 14:59 Albumin 4.8 g/dL (3.9-5) 10/28/18 14:59 Albumin/Globulin Ratio 1.4 % 10/28/18 14:59 Triglycerides 111 mg/dL (2-149) 10/29/18 13:25 Cholesterol 160 mg/dL (50-199) 10/29/18 13:25 LDL Cholesterol Direct 106 mg/dL (50-130) 10/29/18 13:25 HDL Cholesterol 51 mg/dL (40-59) 10/29/18 13:25 Cholesterol/HDL Ratio 3.13 % 10/29/18 13:25
[2018-10-31] MEDS: LOPRESSOR PO SCH (21:20)
[2018-10-31] MEDS: TYLENOL PO PRN (21:22)
[2018-10-31] MEDS: LOVENOX SUB-Q SCH (21:22)
[2018-11-01] MEDS: HumaLOG SUB-Q SCH ×5 (00:21→20:55)
[2018-11-01] MEDS: TYLENOL PO PRN (07:07)
[2018-11-01] MEDS: ASPIRIN PR SCH (09:43)
[2018-11-01] MEDS: LOPRESSOR PO SCH ×2 (09:43→23:10)
[2018-11-01] MEDS ORDERED: ZESTRIL PO SCH (10:00)
--- NOTE | 2018-11-01 11:45 | Progress Note ---
Assessment and Plan Currently stable cardiac status. Continue present cardiac management. Ultimately, he will benefit from a Lexiscan stress test with nuclear imaging which we will plan to do as an outpatient. The patient has been seen in conjunction with Dr. Vernon who agrees with the assessment and plan of care. - Patient Problems (1) NSVT (nonsustained ventricular tachycardia) Current Visit: Yes Status: Acute (2) Acute cerebrovascular accident (CVA) Current Visit: Yes Status: Acute (3) Hypertension Current Visit: Yes Status: Chronic Qualifiers: Hypertension type: essential hypertension Qualified Code(s): I10 - Essential (primary) hypertension Subjective Date of service: 11/01/18 Principal diagnosis: CVA; NSVT Interval history: pt resting in bed, c/o increased weakness today, not feeling well. tele reviewed - no NSVT overnight. Objective Last Vital Signs Temp 98.0 F 11/01/18 08:18 Pulse 61 11/01/18 08:18 Resp 20 11/01/18 08:18 BP 155/84 11/01/18 08:18 Pulse Ox 94 11/01/18 08:18 - Physical Examination HEENT: Positive: Normocephaly, Mucus Membranes Moist Neck: Positive: neck supple, trachea midline Cardiac: Positive: Reg Rate and Rhythm, S1/S2 Neuro: Positive: Other (Aphasia with R hemiparesis) Abdomen: Positive: Soft, Active Bowel Sounds. Negative: Tender Skin: Positive: Clear. Negative: Rash Musculoskeletal: Normal Range of Motion Extremities: Present: normal. Absent: edema - Labs and Meds Comprehensive Metabolic Panel 10/31/18 Range/Units 14:44 Sodium 141 (137-145) mmol/L Potassium 4.1 (3.6-5.0) mmol/L Chloride 104.9 (98-107) mmol/L Carbon Dioxide 22 (22-30) mmol/L BUN 26 H (9-20) mg/dL Creatinine 0.9 (0.8-1.5) mg/dL Glucose 151 H (75-100) mg/dL Calcium 8.9 (8.4-10.2) mg/dL - Imaging and Cardiology EKG: image reviewed - EKG Sinus rhythms and dysrhythmias: sinus rhythm
--- NOTE | 2018-11-01 19:34 | Progress Note ---
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 and dysarthria; --Acute left MCA CVA; not a candidate for TPA or thrombectomy Aspirin and statin, physical therapy occupational therapy and speech therapy Rehabilitation, Neurology following --Malignant hypertension; present on admission Continue current antihypertensives and when necessary medications --Dyslipidemia; continue statin --Dysarthria; speech therapy and supportive care --DVT prophylaxis; Lovenox Physical therapy, occupational therapy, speech therapy -- DC planning.per Case management; possible acute rehabilitation versus SNF placement When medically stable Plan of care discussed with the patient's family through a bilingual family member Answered all their questions Disposition; possible acute rehabilitation/SNF when medically stable==>unfunded, d/w case management, awaiting safe discharge History Interval history: Patient was seen and examined. Follow-up on current diagnosis of CVA. Overnight uneventful. Patient aphasic but nods head. Imaging, nursing note, chart, labs and old chart reviewed. Discussed with patient and nephrew Maninder at bedside. This mornig patient has 5 beat run of NSVT, I consulted Cardiology Hospitalist Physical - Physical exam Narrative exam: Gen: WDWN, NAD, Awake, nonverbal HEENT: NCAT, EOMI, PERRL, OP Clear Neck: supple, no adenopathy, no thyromegaly, no JVD CVS/Heart: RRR, normal S1S2, pulses present bilaterally Chest/Lungs: CTA B, Symmetrical chest expansion, good air entry bilaterally GI/Abdomen: soft, NTND, good bowel sounds, no guarding or rebound /Bladder: no suprapubic tenderness, no CVA or paraspinal tenderness Extermity/Skin: no c/c/e, no obvious rash MSK: FROM x3, right side is flaccid Neuro: CN 2-12 grossly intact except expressive aphasia, right hemiparesis Psych: calm - Constitutional Vitals: Temp Pulse Resp BP Pulse Ox 98.0 F 61 20 155/84 94 11/01/18 08:18 11/01/18 08:18 11/01/18 08:18 11/01/18 08:18 11/01/18 08:18 General appearance: Present: no acute distress Results - Labs CBC & Chem 7: 10/30/18 05:49 10/31/18 14:44 Labs: Laboratory Last Values WBC 10.6 K/mm3 (4.5-11.0) 10/30/18 05:49 RBC 5.17 M/mm3 (3.65-5.03) H 10/30/18 05:49 Hgb 15.3 gm/dl (11.8-15.2) H 10/30/18 05:49 Hct 45.1 % (35.5-45.6) 10/30/18 05:49 MCV 87 fl (84-94) 10/30/18 05:49 MCH 30 pg (28-32) 10/30/18 05:49 MCHC 34 % (32-34) 10/30/18 05:49 RDW 13.2 % (13.2-15.2) 10/30/18 05:49 Plt Count 130 K/mm3 (140-440) L 10/30/18 05:49 Lymph % (Auto) 21.5 % (13.4-35.0) 10/30/18 05:49 [place] % (Auto) 6.6 % (0.0-7.3) 10/30/18 05:49 Eos % (Auto) 0.6 % (0.0-4.3) 10/30/18 05:49 Baso % (Auto) 0.3 % (0.0-1.8) 10/30/18 05:49 Lymph # 2.3 K/mm3 (1.2-5.4) 10/30/18 05:49 [place] # 0.7 K/mm3 (0.0-0.8) 10/30/18 05:49 Eos # 0.1 K/mm3 (0.0-0.4) 10/30/18 05:49 Baso # 0.0 K/mm3 (0.0-0.1) 10/30/18 05:49 Seg Neutrophils % 71.0 % (40.0-70.0) H 10/30/18 05:49 Seg Neutrophils # 7.5 K/mm3 (1.8-7.7) 10/30/18 05:49 PT 13.2 Sec. (12.2-14.9) 10/28/18 14:52 INR 0.96 (0.87-1.13) 10/28/18 14:52 APTT 23.5 Sec. (24.2-36.6) L 10/28/18 14:52 Thrombin Time 16.1 Sec. (15.1-19.6) 10/28/18 14:58 Sodium 141 mmol/L (137-145) 10/31/18 14:44 Potassium 4.1 mmol/L (3.6-5.0) 10/31/18 14:44 Chloride 104.9 mmol/L (98-107) 10/31/18 14:44 Carbon Dioxide 22 mmol/L (22-30) 10/31/18 14:44 Anion Gap 18 mmol/L 10/31/18 14:44 BUN 26 mg/dL (9-20) H 10/31/18 14:44 Creatinine 0.9 mg/dL (0.8-1.5) 10/31/18 14:44 Estimated GFR > 60 ml/min 10/31/18 14:44 BUN/Creatinine Ratio 29 % 10/31/18 14:44 Glucose 151 mg/dL (75-100) H 10/31/18 14:44 POC Glucose 191 (70-105) H 11/01/18 15:27 Hemoglobin A1c 9.3 % (4-6) H 10/30/18 05:49 Calcium 8.9 mg/dL (8.4-10.2) 10/31/18 14:44 Phosphorus 4.70 mg/dL (2.5-4.5) H 10/30/18 05:49 Magnesium 2.30 mg/dL (1.7-2.3) 10/31/18 14:44 Total Bilirubin 0.40 mg/dL (0.1-1.2) 10/28/18 14:59 Direct Bilirubin < 0.2 mg/dL (0-0.2) 10/28/18 14:59 AST 20 units/L (5-40) 10/28/18 14:59 ALT 21 units/L (7-56) 10/28/18 14:59 Alkaline Phosphatase 87 units/L (35-129) 10/28/18 14:59 Troponin T < 0.010 ng/mL (0.00-0.029) 10/28/18 14:58 Total Protein 8.2 g/dL (6.3-8.2) 10/28/18 14:59 Albumin 4.8 g/dL (3.9-5) 10/28/18 14:59 Albumin/Globulin Ratio 1.4 % 10/28/18 14:59 Triglycerides 111 mg/dL (2-149) 10/29/18 13:25 Cholesterol 160 mg/dL (50-199) 10/29/18 13:25 LDL Cholesterol Direct 106 mg/dL (50-130) 10/29/18 13:25 HDL Cholesterol 51 mg/dL (40-59) 10/29/18 13:25 Cholesterol/HDL Ratio 3.13 % 10/29/18 13:25
[2018-11-01] MEDS ORDERED: AMBIEN PO ONE (22:00)
[2018-11-01] MEDS: LOVENOX SUB-Q SCH (23:09)
[2018-11-02] MEDS: HumaLOG SUB-Q SCH ×3 (00:27→12:00)
--- NOTE | 2018-11-02 09:10 | Discharge Summary ---
Providers - Providers Date of Admission: 10/28/18 16:43 Date of discharge: 11/02/18 Attending physician: KUNAL CM 10/28/18 16:43 Occupational Therapy Evaluate and Treat [CONS] Routine Comment: Reason For Exam: Neuro deficits Physical Therapy Evaluation and Treat [CONS] Routine Comment: Reason For Exam: Neuro deficits 10/28/18 16:45 Speech Therapy Evaluation and Treat [CONS] Routine Reason For Exam: swallow eval 10/28/18 17:54 Consult to Physician [CONS] Routine Comment: Consulting Provider: FRANCISCA KIRK Physician Instructions: Reason For Exam: CVA Primary care physician: DELONTE JIMENEZ Hospitalization Condition: Fair Hospital course: Patient is a 63-year-old man with a history of right-sided weakness and dysarthria of 3 days duration, patient was not a candidate for TPA or thrombectomy. 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 Discharge Diagnoses --Acute cerebrovascular accident (CVA) of MCA; not a candidate for TPA or thrombectomy, Aspirin and statin, physical therapy occupational therapy and speech therapy, Rehabilitation, Neurology following --Malignant hypertension; present on admission --New Onset Type 2 DM: metformin and ssi, A1C was 9.3 --Dyslipidemia; continue statin --Dysarthria; speech therapy and supportive care --NSVT, short 5 beat run x 1, no afib Disposition: -01 TO HOME OR SELFCARE Time spent for discharge: 34 minutes Core Measure Documentation - Palliative Care Palliative Care/ Comfort Measures: Not Applicable - Core Measures Any of the following diagnoses?: stroke - VTE Discharge Requirements Deep Vein Thrombosis/Pulmonary Embolism Present on Admission: No Has pt received <5 days of overlap therapy or INR<2.0: No Anticoagulant overlap therapy prescribed at discharge: No Contraindication No Overlap Therapy order at DC: Not Indicated - Stroke Discharge Requirements Statin for LDL = or >70 mg/dl on DC: Yes Anticoag for atrial fib/atrial flutter: No Reason for no anticoag for AF/F on DC: Not Indicated Antithrombotic for ischemic stroke: Yes Exam - Physical Exam Narrative exam: Gen: WDWN, NAD, Awake, nonverbal HEENT: NCAT, EOMI, PERRL, OP Clear Neck: supple, no adenopathy, no thyromegaly, no JVD CVS/Heart: RRR, normal S1S2, pulses present bilaterally Chest/Lungs: CTA B, Symmetrical chest expansion, good air entry bilaterally GI/Abdomen: soft, NTND, good bowel sounds, no guarding or rebound /Bladder: no suprapubic tenderness, no CVA or paraspinal tenderness Extermity/Skin: no c/c/e, no obvious rash MSK: FROM x3, right side is flaccid Neuro: CN 2-12 grossly intact except expressive aphasia, right hemiparesis Psych: calm - Constitutional Vitals: Temp Pulse Resp BP Pulse Ox 99.3 F 67 18 140/80 95 11/02/18 08:15 11/02/18 08:16 11/02/18 08:16 11/02/18 08:16 11/02/18 08:16 Plan Activity: up only with assistance, fall precautions, other (No strenous activity) Diet: diabetic, per dietitian instruction (Pureed diet) Special Instructions: record blood sugar diary (twice a day) Durable Medical Equipment Needed Upon Discharge: Wheelchair Additional Instructions: (1) Ok to fly to [place] d/w MACHINE MAINTENANCE REPAIRER (2) NEED Stress test of the Heart in [place] Follow up with: DELONTE JIMENEZ [Primary Care Provider] - 3-5 Days FRANCISCA KIRK MD [Staff Physician] - 7 Days GRACIELA BOWERS MD [Staff Physician] - 7 Days Prescriptions: AtorvaSTATin [Lipitor] 40 mg PO QHS #30 tablet Acetaminophen [Acetaminophen TAB] 650 mg PO Q4H PRN #10 tablet PRN Reason: Non Cardiac Pain Or Temp>100.5 Aspirin 325 mg PO DAILY #30 tablet Insulin Regular, Human [Novolin R] 1 dose SC ACHS PRN #1 vial PRN Reason: Hyperglycemia Lisinopril [Zestril TAB] 40 mg PO QDAY #30 tablet metFORMIN [Glucophage] 500 mg PO BID #60 tablet Metoprolol [Lopressor TAB] 50 mg PO BID #60 tablet
[2018-11-02] MEDS: LOPRESSOR PO SCH (10:08)
[2018-11-02] MEDS: ASPIRIN PR SCH (10:09)
[2018-11-02] MEDS ORDERED: ZESTRIL ONE (10:14)
--- NOTE | 2018-11-02 10:27 | Progress Note ---
Assessment and Plan Currently stable cardiac status. Continue present cardiac management. Ultimately, he will benefit from a Lexiscan stress test with nuclear imaging which we will plan to do as an outpatient. Pt is being discharged today. He plans to return to [place]. Recommend follow up with ehs teacher in [place] within 1-2 weeks of hospital discharge. The patient has been seen in conjunction with Dr. Vernon who agrees with the assessment and plan of care. - Patient Problems (1) NSVT (nonsustained ventricular tachycardia) Current Visit: Yes Status: Acute (2) Acute cerebrovascular accident (CVA) Current Visit: Yes Status: Acute (3) Hypertension Current Visit: Yes Status: Chronic Qualifiers: Hypertension type: essential hypertension Qualified Code(s): I10 - Essential (primary) hypertension Subjective Date of service: 11/02/18 Principal diagnosis: CVA; NSVT Interval history: pt resting in bed, no current cardiac complaints. tele reviewed - no NSVT overnight. Objective Last Vital Signs Temp 99.3 F 11/02/18 08:15 Pulse 68 11/02/18 10:13 Resp 18 11/02/18 08:16 BP 140/80 11/02/18 10:13 Pulse Ox 95 11/02/18 08:16 - Physical Examination General: No Apparent Distress HEENT: Positive: Normocephaly, Mucus Membranes Moist Neck: Positive: neck supple, trachea midline Cardiac: Positive: Reg Rate and Rhythm, S1/S2 Lungs: Positive: Decreased Breath Sounds Neuro: Positive: Other (Aphasia with R hemiparesis) Abdomen: Positive: Soft, Active Bowel Sounds. Negative: Tender Skin: Positive: Clear. Negative: Rash Musculoskeletal: Normal Range of Motion Extremities: Present: normal. Absent: edema - Imaging and Cardiology EKG: image reviewed - EKG Sinus rhythms and dysrhythmias: sinus rhythm
[2018-11-02] MEDS ORDERED: ZESTRIL PO SCH (14:00)
[2018-11-04 11:30] VITALS: BP 138/80
== END 2018-11-02 16:20 | disposition home or self-care (01) | DRG 65 ==
LOC: ED 14:30 → 4A 16:43
PROVIDERS: ADMIT Internal Medicine; ATTEND Internal Medicine
DX: I63.312 Cerebral infarction due to thrombosis of left middle cerebral artery (principal); E87.2 Acidosis; G81.91 Hemiplegia, unspecified affecting right dominant side; I47.2 Ventricular tachycardia; I10 Essential (primary) hypertension; R47.01 Aphasia; R29.705 NIHSS score 5; R47.1 Dysarthria and anarthria; E78.5 Hyperlipidemia, unspecified; E11.9 Type 2 diabetes mellitus without complications; Z79.84 Long term (current) use of oral hypoglycemic drugs
CPT/HCPCS: 36415; 70450; 70544; 70551; 80048; 80061; 80076; 82962; 83036; 83735; 84100; 84484; 85025; 85610; 85670; 85730; 93005; 93010; 93306; 93880; 96374; G0378; A9270-GY; J0360; J1650; J1815